=== PATIENT | female | born 1950 | race Caucasian/White ===

== ENCOUNTER 2022-03-12 17:40 | Emergency (ER) | payer OTHER, MEDICARE ==
[~2022-03-12] VITALS: Wt 92.1 kg
== END 2022-03-12 20:46 | disposition home or self-care (01) ==
LOC: ED 17:40
DX: T14.8XXA Other injury of unspecified body region, initial encounter (principal); W22.8XXA Striking against or struck by other objects, initial encounter; Y93.89 Activity, other specified; Y92.89 Other specified places as the place of occurrence of the external cause; Y99.8 Other external cause status

== ENCOUNTER → 2022-03-12 | Outpatient (CLI) | payer MEDICARE | LOC: US 12:49 | PROVIDERS: ATTEND Internal Medicine | DX: M79.604 Pain in right leg (principal) ==

== ENCOUNTER → 2022-10-25 | Outpatient (CLI) | payer MEDICARE ==
[~2022-10-25] MED LIST: LOVASTATIN40 MG PO; NORVASC5 MG PO
== END | disposition home or self-care (01) ==
LOC: CARD 01:28
PROVIDERS: ATTEND Internal Medicine
DX: R00.1 Bradycardia, unspecified (principal); R07.89 Other chest pain

== ENCOUNTER → 2023-07-13 | Outpatient (CLI) | payer MEDICARE ==
[~2023-07-13] MED LIST changes: +BARIUM SULFATE 98% 340 GM BOT PO ONE
== END | disposition home or self-care (01) ==
LOC: RAD/SH 03:41
PROVIDERS: ATTEND Physician Assistant
DX: R13.10 Dysphagia, unspecified (principal)

== ENCOUNTER → 2025-02-28 | Day surgery (SDC) | payer MEDICARE ==
[~2025-02-28] VITALS: Ht 157.4 cm; Wt 99.8 kg
[~2025-02-28] MED LIST changes: -BARIUM SULFATE 98% 340 GM BOT PO ONE; +Lactated Ringer's Solution 1,000 ML IV ONE; +Lidocaine Hydrochloride 2% 5 ML SDV IV ONE; +Lidocaine Hydrochloride 30 ML VIAL ONE; +Midazolam Hydrochloride 2 MG/2 ML VIAL IV ONE; +Ondansetron Hydrochloride 4 MG/2 ML VIAL IV ONE; +PROPOFOL 200 MG/20 ML VIAL IV ONE; +ceFAZolin sodium/sodium chlor 20 ML IV ONE; +ceFAZolin sodium/sodium chlor 20 ML IV SCH
[2025-02-28 07:30] VITALS: BP 125/42
[2025-02-28 09:08] VITALS: BP 108/54
[2025-02-28 09:23] VITALS: BP 120/63
[2025-02-28 09:38] VITALS: BP 119/66
== END | disposition home or self-care (01) ==
LOC: SDC 02-25 11:00
PROVIDERS: ATTEND Orthopaedic Surgery
DX: M79.89 Other specified soft tissue disorders (principal); R22.31 Localized swelling, mass and lump, right upper limb; I10 Essential (primary) hypertension; Z87.891 Personal history of nicotine dependence; Z79.899 Other long term (current) drug therapy; Z90.49 Acquired absence of other specified parts of digestive tract; Z98.890 Other specified postprocedural states; Z96.641 Presence of right artificial hip joint